=== PATIENT | male | born 2000 | race Two or more races ===

== ENCOUNTER 2020-12-19 22:32 | Emergency (ER) | payer MEDICAID ==
[~2020-12-19] VITALS: Ht 167.6 cm; Wt 68.0 kg
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
--- NOTE | 2020-12-19 22:45 | NUR ---
DR BECKMAN AT BED SIDE
[2020-12-19] MEDS ORDERED: HYDROCODONE/APAP 10/325MG TABLET ONE (22:57)
[2020-12-19] MEDS ORDERED: ONDANSETRON 4 MG TAB.RAPDIS ONE (22:57)
[2020-12-19] MEDS ORDERED: HYDROCODONE/APAP 10/325MG TABLET PO ONE (23:00)
[2020-12-19] MEDS ORDERED: ONDANSETRON 4 MG TAB.RAPDIS SL ONE (23:00)
--- NOTE | 2020-12-19 23:20 | NUR ---
PT REFUSING XRAYS. DR BECKMAN NOTIFIED.
[2020-12-20] MEDS ORDERED: HYDR-4209 PO (00:10)
[2020-12-20 01:06] VITALS: BP 128/74
--- NOTE | 2020-12-20 01:06 | NUR ---
Patient discharged to home in stable condition. Written and verbal after care instructions given. Patient verbalizes understanding of instruction.Mr Holder is ambulatory with a steady gait
== END 2020-12-20 01:14 | disposition home or self-care (01) ==
LOC: ER 22:35
DX: M79.18 Myalgia, other site (principal); M79.605 Pain in left leg; Z79.899 Other long term (current) drug therapy; V49.59XA Passenger injured in collision with other motor vehicles in traffic accident, initial encounter; Y93.89 Activity, other specified; Y92.488 Other paved roadways as the place of occurrence of the external cause; Y99.8 Other external cause status
CPT/HCPCS: 29105; 29125; 99283; Q0162

== ENCOUNTER 2021-01-12 15:46 | Emergency (ER) | payer MEDICAID ==
[~2021-01-12] VITALS: Ht 170.2 cm; Wt 60.3 kg
[~2021-01-12 15:46] MED LIST: HYDR-4209 PO
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
[2021-01-12] MEDS ORDERED: EPINEPHRINE (1:1000) 1 MG/ML AMPUL ONE (15:48)
[2021-01-12] MEDS ORDERED: methylPREDNISolone SOD SUCC 125 MG/2ML VIAL ONE (15:48)
[2021-01-12] MEDS ORDERED: FAMOTIDINE/PF INJ 20 MG/2 ML VIAL IV ONE ×2 (15:48→16:00)
[2021-01-12] MEDS ORDERED: diphenhydrAMINE HCL 50 MG/ML VIAL ONE (15:48)
--- NOTE | 2021-01-12 15:48 | NUR ---
PT SEEN AND EXAMINED BY EVELINA DENNEY.
--- NOTE | 2021-01-12 15:55 | NUR ---
IV LINE ESTABLISHED.
[2021-01-12] MEDS ORDERED: diphenhydrAMINE HCL 50 MG/ML VIAL IV ONE (16:00)
[2021-01-12] MEDS ORDERED: ALBUTEROL FS 2.5 MG/3 ML VIAL.NEB CONTNEB ONE (16:00)
[2021-01-12] MEDS ORDERED: methylPREDNISolone SOD SUCC 125 MG/2ML VIAL IV ONE (16:00)
[2021-01-12] MEDS ORDERED: EPINEPHRINE (1:1000) MDV 30 MG/30ML VIAL SUBCUT ONE (16:00)
[2021-01-12] MEDS ORDERED: IV NS 0.9% 1,000 ML BAG IV ONE (16:00)
[2021-01-12] MEDS ORDERED: IPRATROPIUM NEB FS 0.5 MG/2.5 ML AMPUL.NEB NEB ONE (16:00)
[2021-01-12] MEDS ORDERED: ALBUTEROL FS 2.5 MG/3 ML VIAL.NEB ONE (16:30)
[2021-01-12] MEDS ORDERED: IPRATROPIUM NEB FS 0.5 MG/2.5 ML AMPUL.NEB ONE (16:30)
[2021-01-12] MEDS ORDERED: EPIN0.3P3 IJ (17:01)
[2021-01-12] MEDS ORDERED: FAMO-131 PO (17:01)
[2021-01-12] MEDS ORDERED: DIPH25TA25 PO (17:01)
[2021-01-12] MEDS ORDERED: PRED20TA PO (17:01)
[2021-01-12 18:21] VITALS: BP 124/72
--- NOTE | 2021-01-12 18:21 | NUR ---
IV removed. Catheter intact and site benign. Pressure and 4x4 applied to site. No bleeding noted. Patient discharged to home in stable condition. Written and verbal after care instructions given. Patient verbalizes understanding of instruction.
== END 2021-01-12 18:22 | disposition home or self-care (01) ==
LOC: ER 15:48
DX: T78.2XXA Anaphylactic shock, unspecified, initial encounter (principal); L50.9 Urticaria, unspecified; Z91.013 Allergy to seafood; Z79.899 Other long term (current) drug therapy
CPT/HCPCS: 94644; 96361; 96372; 96374; 96375; 99285; J0171 ×2; J1200; J2930; J3490

== ENCOUNTER 2021-01-26 16:35 | Emergency (ER) | payer MEDICAID ==
[~2021-01-26] VITALS: Ht 157.5 cm; Wt 59.0 kg
[~2021-01-26 16:35] MED LIST changes: +DIPH25TA25 PO; +EPIN0.3P3 IJ; +FAMO-131 PO; +PRED20TA PO
[2021-01-26 16:41] VITALS: BP 127/89
[2021-01-26] MEDS ORDERED: diphenhydrAMINE HCL 50 MG CAPSULE ONE (16:46)
[2021-01-26] MEDS ORDERED: predniSONE 20 MG TABLET ONE (16:47)
[2021-01-26] MEDS ORDERED: predniSONE 10 MG TABLET PO ONE (17:00)
[2021-01-26] MEDS ORDERED: diphenhydrAMINE HCL 50 MG CAPSULE PO ONE (17:00)
[2021-01-26] MEDS ORDERED: EPIN0.3P3 IJ (17:57)
[2021-01-26] MEDS ORDERED: PRED20TA PO (17:57)
--- NOTE | 2021-01-26 18:04 | NUR ---
Patient discharged to home in stable condition. Written and verbal after care instructions given. Patient verbalizes understanding of instruction.
== END 2021-01-26 18:05 | disposition home or self-care (01) ==
LOC: ER 16:37
DX: T78.1XXA Other adverse food reactions, not elsewhere classified, initial encounter (principal); Z79.899 Other long term (current) drug therapy; X58.XXXA Exposure to other specified factors, initial encounter
CPT/HCPCS: 99283; J7512; Q0163

== ENCOUNTER 2022-04-27 17:54 | Emergency (ER) | payer MEDICAID ==
[~2022-04-27] VITALS: Ht 167.6 cm; Wt 61.2 kg
--- NOTE | 2022-04-27 18:03 | NUR ---
BIBS C/O ASTHMA ATTACK WHILE WORKING, PT STATED THAT HE RAN OUT OF HIS MEDICATION AND INHALER. PT VITALS ARE WITHIN NORMAL LIMITS, SATTING AT 97% ON ROOM AIR. AWAITING MD RONQUILLO.
[2022-04-27] MEDS ORDERED: ALBUTEROL FS 2.5 MG/3 ML VIAL.NEB ONE (18:06)
[2022-04-27] MEDS ORDERED: IPRATROPIUM NEB FS 0.5 MG/2.5 ML AMPUL.NEB ONE (18:09)
[2022-04-27] MEDS ORDERED: predniSONE 20 MG TABLET ONE (18:28)
[2022-04-27] MEDS ORDERED: IPRATROPIUM NEB FS 0.5 MG/2.5 ML AMPUL.NEB NEB ONE (18:30)
[2022-04-27] MEDS ORDERED: predniSONE 20 MG TABLET PO ONE (18:30)
[2022-04-27] MEDS ORDERED: ALBUTEROL FS 2.5 MG/3 ML VIAL.NEB NEB ONE (18:30)
[2022-04-27] MEDS ORDERED: PRED50TA PO (18:58)
[2022-04-27] MEDS ORDERED: ALBU18HF2 INH (18:58)
--- NOTE | 2022-04-27 19:04 | NUR ---
Patient discharged to home in stable condition. Written and verbal after care instructions given. Patient verbalizes understanding of instruction.
[2022-04-27 19:05] VITALS: BP 121/90
== END 2022-04-27 19:05 | disposition home or self-care (01) ==
LOC: ER 18:03
DX: J45.901 Unspecified asthma with (acute) exacerbation (principal); J45.909 Unspecified asthma, uncomplicated; Z91.013 Allergy to seafood; Z79.899 Other long term (current) drug therapy
CPT/HCPCS: 99283; 94640; J7512

== ENCOUNTER 2022-07-25 11:11 | Emergency (ER) | payer MEDICAID ==
[~2022-07-25] VITALS: Ht 157.5 cm; Wt 63.5 kg
[~2022-07-25 11:11] MED LIST changes: +ALBU18HF2 INH; +PRED50TA PO
[2022-07-25] MEDS ORDERED: ALBU18HF2 INH (11:26)
[2022-07-25 11:27] VITALS: BP 120/99
== END 2022-07-25 11:36 | disposition home or self-care (01) ==
LOC: ER 11:18
DX: Z76.0 Encounter for issue of repeat prescription (principal); J45.909 Unspecified asthma, uncomplicated; Z91.013 Allergy to seafood; Z79.899 Other long term (current) drug therapy

== ENCOUNTER 2025-04-13 14:54 | Emergency (ER) | payer MEDICAID ==
[~2025-04-13] VITALS: Ht 154.9 cm; Wt 59.0 kg
[2025-04-13 15:06] VITALS: BP 122/84; TEMP 98.3
[2025-04-13 17:16] LABS: BLOOD, URINE Small Ery/uL (NEGATIVE); LEUKOCYTE ESTERASE ,URINE Moderate (NEGATIVE); UGLUCOSE Negative (NEGATIVE)
[2025-04-13 17:17] LABS: APPEARANCE,URINE HAZY (CLEAR); NITRITE, URINE POSITIVE (NEGATIVE)
[2025-04-13 17:20] LABS: ADD URINE CULTURE YES; HYALINE CASTS, URINE Few /LPF (None Seen); SQUAMOUS EPITHELIAL CELL,UR Rare /HPF (None Seen); URINE AMORPHOUS PHOSPHATES Moderate /HPF (None Seen)
[2025-04-13] MEDS ORDERED: SULF1TAB48 PO (17:35)
[2025-04-13 17:51] VITALS: O2SAT 99
== END 2025-04-13 17:52 | disposition home or self-care (01) ==
LOC: ER 15:02
DX: N39.0 Urinary tract infection, site not specified (principal); J45.909 Unspecified asthma, uncomplicated; Z79.52 Long term (current) use of systemic steroids; Z79.899 Other long term (current) drug therapy
CPT/HCPCS: 81001; 87086-TC; 87186-TC